=== PATIENT | male | born 1970 | race Two or more races ===

== ENCOUNTER 2018-06-15 22:11 | Inpatient (IN) ==
--- NOTE | 2018-06-15 22:41 | XR ---
EXAM DATE: 06/15/2018 10:37 PM EST AGE/SEX: 48 years / Male INDICATIONS: Chest pain CLINICAL DATA: This is the patient's initial encounter. Patient reports that signs and symptoms have been present for 1 day and indicates a pain score of 3/10. MEDICAL/SURGICAL HISTORY: Hypertension. None. COMPARISON: No prior exams available for comparison. FINDINGS: A single AP view of the chest demonstrates the lungs to be symmetrically aerated without evidence of mass, infiltrate or effusion. The cardiomediastinal contours are unremarkable. Osseous structures a re intact. CONCLUSION: Negative chest Electronically signed by: Raymon Chapman MD Board Certified Radiologist 06/15/2018 10:40 PM EST
[2018-06-15 23:04] LABS: Baso # (Auto) 0.1 th/mm3 (0.0-0.2); Baso % (Auto) 0.8 % (0.0-2.0); Eos # (Auto) 0.4 th/mm3 (0.0-0.4); Eos % (Auto) 4.3 % (0.0-4.0); Hematocrit 45.1 % (39.0-51.0); Hemoglobin 15.4 gm/dL (13.0-17.0); Lymph # (Auto) 3.1 th/mm3 (1.0-4.8); Lymph % (Auto) 35.1 % (9.0-44.0); Mean Corpuscular HGB Conc 34.2 % (32.0-36.0); Mean Corpuscular Volume 90.7 fL (80.0-100.0); Mean Platelet Volume 8.7 fL (7.0-11.0); Mono # (Auto) 0.5 th/mm3 (0.0-0.9); Mono % (Auto) 5.8 % (0.0-8.0); Neut # (Auto) 4.7 th/mm3 (1.8-7.7); Platelet Count 298 th/mm3 (150-450); Red Blood Count 4.97 mil/mm3 (4.50-5.90); Red Cell Distribution Width 14.5 % (11.6-17.2); White Blood Count 8.8 th/mm3 (4.0-11.0)
[2018-06-15 23:27] LABS: Alanine Aminotransferase 21 U/L (12-78); Albumin 3.8 g/dL (3.4-5.0); Alkaline Phosphatase 99 U/L (45-117); Anion Gap 6 meq/L (5-15); Aspartate Aminotransferase 27 U/L (15-37); Blood Urea Nitrogen 21 mg/dL (7-18); Calcium 8.1 mg/dL (8.5-10.1); Carbon Dioxide 29.3 meq/L (21.0-32.0); Chloride 103 meq/L (98-107); Creatine Kinase 243 U/L (39-308); Glomerular Filtration Rate 51 mL/min (>89); Glucose,Random 301 mg/dL (74-106); Magnesium 1.9 mg/dL (1.5-2.5); Sodium 138 meq/L (136-145); Total Protein 7.7 g/dL (6.4-8.2)
[2018-06-15 23:41] LABS: Potassium 4.3 meq/L (3.5-5.1)
[2018-06-15] MEDS ORDERED: Sodium Chlor 0.9% Inj 500 ML IV.SIG SCH (23:45)
[2018-06-15 23:54] LABS: Creatine Kinase MB 5.3 ng/mL (0.5-3.6)
--- NOTE | 2018-06-16 | ED ---
HPI General Chief Complaint: Chest Pain Stated Complaint: chest Pain/High BP Time Seen by Provider: 06/15/18 22:26 Source: patient Mode of arrival: ambulatory Limitations: no limitations History of Present Illness HPI narrative: 48-year-old male presents to the emergency department by private transportation for complaint of high blood pressure chest pain and headache. According the patient he takes lisinopril as prescribed for his high blood pressure. Patient took his evening dose of lisinopril as prescribed. Patient states around 730 this evening he had an episode of chest tightness that resolved after several minutes and then went to bed and then noticed again as he was preparing to go to sleep that he had recurrent chest pressure nonradiating he also noted that he had some headache not sudden onset thunderclap or worst ever no report of altered mental status visual disturbance shortness of breath sweats nausea vomiting referred neck jaw back shoulder arm or extremity pain. No upper extremity lower extremity numbness tingling or weakness. Patient checked his blood pressure it was elevated. Came to the emergency room for evaluation. Patient was noted to have high blood pressure on triage vital signs. Patient rates his chest discomfort currently as 7/10 intensity. Patient is a non-smoker. Patient also has history of diabetes. Denies previous history of myocardial infarction no report of dyslipidemia. MD complaint: Reports chest pain STEMI Alert: No Onset (ago): hour(s) Time: 07:30 Duration: intermittent Onset: during rest and awoke with symptoms Pain location: Reports substernal and left chest Severity: severe Severity scale (1-10): 7 Quality: Reports tightness Pain radiation: Reports none Relieving factors: nothing Exacerbating factors: nothing Context: Denies recent illness, recent surgery, recent immobilization, recent travel, trauma/injury, new medications and history of DVT/PE Associated symptoms: Denies nausea, vomiting, diaphoresis, dyspnea, sense of impending doom, syncope, palpitations, fever, cough and leg swelling Treatments prior to arrival chest pain: Reports none Related Data Home Medications Medication Instructions Recorded Confirmed atorvastatin 10 mg PO DAILY 06/15/18 06/15/18 escitalopram oxalate [Lexapro] 5 mg PO DAILY 06/15/18 06/15/18 insulin degludec [Tresiba 15 unit SUBCUT DAILY 06/15/18 06/15/18 FlexTouch U-100] insulin regular human 10 unit SUBCUT TID 06/15/18 06/15/18 lisinopril 20 mg PO BID 06/15/18 06/15/18 Allergies Allergy/AdvReac Type Severity Reaction Status Date / Time shellfish derived Allergy Severe HIVES Unverified 12/07/16 20:31 Review of Systems ROS: all other systems reviewed are negative PMFSH Social History Social History Substance History: Active Abuse Second Hand Smoke Exposure: No Smoking Status: Never smoker How Often Do You Have a Drink Containing Alcohol: Monthly or less Recent Travel in [facility] within the Last 8 Weeks: No Recent Out of Country Travel within the Last 8 Weeks: No Substance Abuse Detail Marijuana: Substance Use Type Other:: marijuana Immunization History Tetanus Immunization: >5 Years Exam Narrative Exam Narrative: GENERAL: Well-developed well-nourished male no acute distress no respiratory distress GCS 15 SKIN: Focused skin assessment warm/dry. HEAD: Atraumatic. Normocephalic. EYES: Pupils equal and round. No scleral icterus. No injection or drainage. ENT: No nasal bleeding or discharge. Mucous membranes pink and moist. NECK: Trachea midline. No JVD. CARDIOVASCULAR: Regular rate and rhythm. No murmur appreciated. RESPIRATORY: No accessory muscle use. Clear to auscultation. Breath sounds equal bilaterally. GASTROINTESTINAL: Abdomen soft, non-tender, nondistended. Hepatic and splenic margins not palpable. MUSCULOSKELETAL: No obvious deformities. No clubbing. No cyanosis. No edema. NEUROLOGICAL: Awake and alert. No obvious cranial nerve deficits. Motor grossly within normal limits. Normal speech. PSYCHIATRIC: Appropriate mood and affect; insight and judgment normal. Course Initial Documented Vital Signs Temperature 97.9 F 06/15/18 22:13 Pulse Rate 95 H 06/15/18 22:13 Respiratory Rate 22 06/15/18 22:13 Blood Pressure 258/125 H 06/15/18 22:13 Pulse Oximetry 99 06/15/18 22:13 Last Documented Vital Signs Temperature 97.5 F L 06/16/18 01:28 Pulse Rate 60 06/16/18 01:28 Respiratory Rate 18 06/16/18 02:10 Blood Pressure 155/84 H 06/16/18 01:28 Pulse Oximetry 98 06/16/18 01:28 Critical Care Time Critical Care Time: Yes Total Critical Care Time: 30 Attestation: Aggregate critical care time was 30 minutes. Time to perform other separately billable procedures was not included in the critical care time. My time did not include minutes spent treating any other patients simultaneously or on activities that did not directly contribute to the patient's treatment. The services I provided to this patient were to treat and/or prevent clinically significant deterioration that could result in: Myocardial infarction, stroke, I provided critical care services requiring my management, as noted below: Chart data review, documentation time, medication orders and management, vital sign assessments/reviewing monitor data, ordering and reviewing lab tests, ordering and interpreting/reviewing x-rays and diagnostic studies, care of the patient and discussion of the patient with the admitting physicians. Medical Decision Making MDM Narrative Medical decision making narrative: 48-year-old male with history of hypertension and diabetes with markedly elevated blood pressure with complaint of chest pain and headache placed on air sampling and monitoring with continuous pulse oximetry IV access obtained specimens collected and sent for resulting EKG performed which is normal sinus rhythm rate 86 LVH by voltage criteria nonspecific T wave changes with no acute ST elevation or injury pattern change noted without reciprocal changes patient was given sublingual nitroglycerin for chest pain and for blood pressure control with good response and also given aspirin 162 mg by mouth Patient's pain has decreased from 7/10 in intensity to a 2/10 in intensity and denies any other associated headache or other symptoms. Lab values resulted found to be in normal range except for his troponin I was found to be elevated at 0.1 and his CK was 245 but the MB was 5.3 which is elevated the MB percent is 2% which is not elevated Nitropaste applied to the chest wall patient's pain is resolved call placed to medicine service for admission; patient presented with hypertensive crisis suspect that elevation of troponin I is related to his previously uncontrolled high blood pressure; patient's cardiac risk factor however includes age 48 gender male pre-existing conditions hypertension diabetes and family history of premature onset heart disease, does not have history of tobaccoism or dyslipidemia; patient with spouse at bedside aware of plan and is agreeable. Patient's case discussed with medicine service, Dr. Nash admit to her service Medical Screen Exam Complete: Yes Emergency Medical Condition: Yes Differential Diagnosis Differential Diagnosis: Hypertensive crisis, ACS, SD, uncontrolled diabetes Medical Records No prior visit Lab Data Lab results reviewed: Yes I reviewed the patient's lab results. Result diagrams: 02/21/19 22:45 06/15/18 22:45 Lab Results 06/15/18 06/15/18 06/15/18 Range/Units 22:45 22:45 22:45 WBC 8.8 (4.0-11.0) th/mm3 RBC 4.97 (4.50-5.90) mil/mm3 Hgb 15.4 (13.0-17.0) gm/dL Hct 45.1 (39.0-51.0) % MCV 90.7 (80.0-100.0) fL MCH 31.0 (27.0-34.0) pg MCHC 34.2 (32.0-36.0) % RDW 14.5 (11.6-17.2) % Plt Count 298 (150-450) th/mm3 MPV 8.7 (7.0-11.0) fL Neut % (Auto) 54.0 (16.0-70.0) % Lymph % (Auto) 35.1 (9.0-44.0) % Person % (Auto) 5.8 (0.0-8.0) % Eos % (Auto) 4.3 H (0.0-4.0) % Baso % (Auto) 0.8 (0.0-2.0) % Neut # (Auto) 4.7 (1.8-7.7) th/mm3 Lymph # (Auto) 3.1 (1.0-4.8) th/mm3 Person # (Auto) 0.5 (0.0-0.9) th/mm3 Eos # (Auto) 0.4 (0.0-0.4) th/mm3 Baso # (Auto) 0.1 (0.0-0.2) th/mm3 WBC Differential . Differential Comment Auto diff final Sodium 138 (136-145) meq/L Potassium 4.3 (3.5-5.1) meq/L Chloride 103 (98-107) meq/L Carbon Dioxide 29.3 (21.0-32.0) meq/L Anion Gap 6 (5-15) meq/L BUN 21 H (7-18) mg/dL Creatinine 1.47 H (0.60-1.30) mg/dL Estimated GFR 51 L (>89) mL/min Random Glucose 301 H (74-106) mg/dL Calcium 8.1 L (8.5-10.1) mg/dL Magnesium 1.9 (1.5-2.5) mg/dL Total Bilirubin 0.3 (0.2-1.0) mg/dL AST 27 (15-37) U/L ALT 21 (12-78) U/L Alkaline Phosphatase 99 (45-117) U/L Total Creatine Kinase 243 (39-308) U/L CK-MB (CK-2) 5.3 H (0.5-3.6) ng/mL Troponin I 0.10 H (0.02-0.05) ng/mL B-Natriuretic Peptide 26 (0-100) pg/mL Total Protein 7.7 (6.4-8.2) g/dL Albumin 3.8 (3.4-5.0) g/dL Imaging Data Radiologist's impression: Chest X-Ray 06/15/18 22:26 CONCLUSION: Negative chest ECG Data EKG Prior to Arrival: No Attestation: I personally reviewed and interpreted this ECG as follows: (EKG: Normal sinus rhythm rate 85 left ventricular hypertrophy by voltage criterion and nonspecific ST-T changes no acute ST elevation or injury pattern no reciprocal changes no comparison EKG) Discharge Plan Discharge Disposition Patient Disposition: ED Admit(ED Internal Use Only) Discharge Condition Condition: Stable Discharge Order Discharge Orders: ED Use Only Admit Order (Routine); Ordered 06/16/18 Ordered By: Amisha Torres Discharge Details Diagnosis: Hypertensive crisis, Chest pain, Diabetes Physicians Team ED Provider: Amisha Torres Primary Care Provider: UNKNOWN, Attending Provider: Waleska Nash Other Providers: Landon Tsang ; [facility],Insurance Status ED Status: Left Department Discharge Information Discharge Date/Time: 06/16/18 01:56
[2018-06-16] MEDS ORDERED: Bisacodyl 10 MG Supp RECTAL PRN (00:23)
[2018-06-16] MEDS ORDERED: Morphine Inj 4 MG/ML Vial IV.PUSH PRN (00:24)
[2018-06-16] MEDS: Sod Chloride 0.9% Inj 1,000 ML IV.CONT SCH ×2 (01:03→08:56)
--- NOTE | 2018-06-16 01:07 | P.HPIM ---
History of Present Illness Primary Care Physician: UNKNOWN History of Present Illness: This is a 48-year-old male with a PMH of HTN, Hyperlipidemia and DM who presented to the ER with complaints of chest pain starting earlier today. States he had sudden onset substernal chest pain at work this afternoon, pain resolved spontaneously after few minutes. Later this evening had recurrent episode of chest pain, this time severe, 10/10, substernal , non-radiating, associated w/ SOB and severe headache. On arrival, BP 258/125 , HR 95, O2 sat 99% on RA, Afebrile. S/p NTG w/ improvement in BP to 150-160' s. Currently chest pain free. CBC unremarkable. Creatinine 1.47, no previous labs for comparison. BS 301. CXR negative. Troponin 0.10. Diagnosis (1) Chest pain: (2) HTN (hypertension): (3) SERENITY (acute kidney injury): (4) DM (diabetes mellitus): (5) Elevated troponin: Review of Systems PAST FAMILY HISTORY: Reviewed, positive for DM and CAD. Review of Systems: all other systems reviewed are negative [facility] Social History Social History Substance History: Active Abuse Second Hand Smoke Exposure: No Smoking Status: Never smoker How Often Do You Have a Drink Containing Alcohol: Monthly or less Substance Abuse Detail Marijuana: Substance Use Type Other:: marijuana Immunization History Tetanus Immunization: >5 Years Medications and Allergies Allergies Allergy/AdvReac Type Severity Reaction Status Date / Time shellfish derived Allergy Severe HIVES Unverified 12/07/16 20:31 Home Medications Medication Instructions Recorded Confirmed Type atorvastatin 10 mg PO DAILY 06/15/18 06/15/18 History escitalopram oxalate [Lexapro] 5 mg PO DAILY 06/15/18 06/15/18 History insulin degludec [Tresiba 15 unit SUBCUT DAILY 06/15/18 06/15/18 History FlexTouch U-100] insulin regular human 10 unit SUBCUT TID 06/15/18 06/15/18 History lisinopril 20 mg PO BID 06/15/18 06/15/18 History Active Medications: Active Medications Acetaminophen (Tylenol) 650 mg PO Q4H PRN PRN Reason: Temp > 100.4 Al Hydroxide/Mg Hydroxide (Milk Of Magnmark Liq) 30 ml PO Q12H PRN PRN Reason: Mild Constipation Aspirin (Ecotrin) 81 mg PO DAILY [facility] Atorvastatin Calcium (Lipitor) 10 mg PO DAILY [facility] Bisacodyl (Dulcolax Supp) 10 mg RECTAL DAILY PRN PRN Reason: SEVERE CONSITIPATION Escitalopram Oxalate (Lexapro) 5 mg PO DAILY [facility] Sodium Chloride (Ns Inj) 1,000 mls @ 125 mls/hr IV.CONT .Q8H [facility] Lactulose (Lactulose Liq) 30 ml PO DAILY PRN PRN Reason: SEVERE CONSITIPATION Metoprolol Tartrate (Lopressor) 25 mg PO BID [facility] Morphine Sulfate (Morphine Inj) 2 mg IV.PUSH Q4H PRN PRN Reason: PAIN SCALE 6 TO 10 Ondansetron HCl (Zofran Inj) 4 mg IV.PUSH Q6H PRN PRN Reason: NAUSEA OR VOMITING Senna/Docusate Sodium (Eryn-Colace) 1 tab PO BID [facility] Sennosides (Senokot) 17.2 mg PO Q12H PRN PRN Reason: Moderate Constipation Sodium Chloride (Ns Flush) 2 ml IV.FLUSH UNSCH PRN PRN Reason: FLUSH AFTER USING IV ACCESS Sodium Chloride (Ns Flush) 2 ml IV.FLUSH PRN PRN PRN Reason: FLUSH AFTER USING IV ACCESS Sodium Chloride (Ns Flush) 2 ml IV.FLUSH BID [facility] Physical Exam Vital signs: Vital Signs 06/15/18 22:13 06/15/18 22:36 06/15/18 22:37 Temperature 97.9 F Pulse Rate 95 H 76 76 Respiratory Rate 22 18 Blood Pressure 258/125 H 243/115 H Pulse Oximetry 99 98 06/15/18 22:51 06/15/18 22:58 06/15/18 23:03 Temperature Pulse Rate 76 75 Respiratory Rate 18 17 18 Blood Pressure 181/84 H 158/73 H Pulse Oximetry 96 96 06/15/18 23:12 06/15/18 23:22 06/15/18 23:24 Temperature Pulse Rate 77 79 Respiratory Rate 16 17 Blood Pressure 160/76 H 151/72 H Pulse Oximetry 96 97 06/15/18 23:49 06/16/18 00:54 Temperature Pulse Rate 69 Respiratory Rate 18 Blood Pressure 162/84 H Pulse Oximetry 97 98 Intake & Output 06/15/18 06/15/18 06/16/18 06:59 18:59 06:59 Weight 76.204 kg Narrative: PE: GENERAL: Middle-aged male in no acute distress. at bedside. SKIN: Focused skin assessment warm and dry. HEENT: PERRLA, EOMI. No scleral icterus or conjunctival pallor. No lid lag or facial droop. CARDIOVASCULAR: Regular rate and rhythm. No obvious murmurs to auscultation. No chest tenderness to palpation. RESPIRATORY: No obvious rhonchi or wheezing. Clear to auscultation. Breath sounds equal bilaterally. GASTROINTESTINAL: Abdomen soft, non-tender, nondistended. BS normal. MUSCULOSKELETAL: Extremities without clubbing, cyanosis, or edema. No obvious deformities. NEUROLOGICAL: Awake, alert and oriented x4. No focal neurologic deficits. Moving both upper and lower extremities spontaneously. PSYCHIATRIC: Appropriate mood and affect. Insight and judgment normal. Results Labs CBC & Chem 7: 06/15/18 22:45 06/15/18 22:45 Imaging Impressions Chest X-Ray 06/15/18 22:26 CONCLUSION: Negative chest Caprini VTE Risk Assessment Caprini VTE Risk Assessment: No/Low Risk (score <= 1) Caprini Risk Assessment Model: Point Value = 1 Point Value = 2 Point Value = 3 Point Value = 5 Age 41-60 Minor surgery BMI > 25 kg/m2 Swollen legs Varicose veins or History of unexplained or recurrent spontaneous Oral contraceptives or hormone replacement Sepsis (< 1 month) Serious lung disease, including pneumonia (< 1 month) Abnormal pulmonary function Acute myocardial infarction Congestive heart failure (< 1 month) History of inflammatory bowel disease Medical patient at bed rest Age 61-74 Arthroscopic surgery Major open surgery (> 45 min) Laparoscopic surgery (> 45 min) Malignancy Confined to bed (> 72 hours) Immobilizing plaster cast Central venous access Age >= 75 History of VTE Family history of VTE Factor V Leiden Prothrombin [id number] Lupus anticoagulant Anticardiolipin antibodies Elevated serum homocysteine Heparin-induced thrombocytopenia Other congenital or acquired thrombophilia Stroke (< 1 month) Elective arthroplasty Hip, pelvis, or leg fracture Acute spinal cord injury (< 1 month) Prophylaxis Regimen: Total Risk Factor Score Risk Level Prophylaxis Regimen 0-1 Low Early ambulation 2 Moderate Order ONE of the following: *Sequential Compression Device (SCD) *Heparin 5000 units SQ BID 3-4 Higher Order ONE of the following medications: *Heparin 5000 units SQ TID *Enoxaparin/Lovenox 40 mg SQ daily (WT < 150 kg, CrCl > 30 mL/min) *Enoxaparin/Lovenox 30 mg SQ daily (WT < 150 kg, CrCl > 10-29 mL/min) *Enoxaparin/Lovenox 30 mg SQ BID (WT < 150 kg, CrCl > 30 mL/min) AND/OR *Sequential Compression Device (SCD) 5 or more Highest Order ONE of the following medications: *Heparin 5000 units SQ TID (Preferred with Epidurals) *Enoxaparin/Lovenox 40 mg SQ daily (WT < 150 kg, CrCl > 30 mL/min) *Enoxaparin/Lovenox 30 mg SQ daily (WT < 150 kg, CrCl > 10-29 mL/min) *Enoxaparin/Lovenox 30 mg SQ BID (WT < 150 kg, CrCl > 30 mL/min) AND *Sequential Compression Device (SCD) Assessment and Plan (1) Chest pain: Code(s): R07.9 - Chest pain, unspecified Status: Acute (2) HTN (hypertension): Code(s): I10 - Essential (primary) hypertension Status: Acute (3) SERENITY (acute kidney injury): Code(s): N17.9 - Acute kidney failure, unspecified Status: Acute (4) DM (diabetes mellitus): Code(s): E11.9 - Type 2 diabetes mellitus without complications Status: Acute (5) Elevated troponin: Code(s): R74.8 - Abnormal levels of other serum enzymes Status: Acute Plan A/P: 1. Chest Pain: intermittent episodes of chest pain earlier today, s/p NTG w/ resolution, continue w/ NTG, Morphine prn. 2. Elevated Trop: Trop 0.10, likely related to Hypertensive urgency w/ BP 250' s, will admit for further eval, check serial cardiac enzymes, check Lipid Profile, start ASA, Statin, Metoprolol. Consult Cardiology for further eval/ recommendations. 3. HTN: Uncontrolled, BP 250's on arrival, s/p NTG w/ significant improvement , BP currently 150's, will hold Lisinopril in light of renal insufficiency, start Metoprolol, monitor BP, antihypertensives as needed for BP >180 4. SERENITY: Creatinine 1.47, no previous labs for comparison, presumably new, check U/a and UDS, IVF for hydration, monitor I/O, repeat labs in am. 5. DVT Prophylaxis: SCD/Teds 6. Social work for d/c planning as needed. 7. Case discussed w/ ER physician at length, labs/records/imaging reviewed by me. _ (1) Chest pain Qualifiers: Chest pain type: Ischemic chest pain type:
[2018-06-16] MEDS: Acetaminophen 325 MG Tablet PO PRN (01:37)
[2018-06-16 05:38] LABS: Baso # (Auto) 0.1 th/mm3 (0.0-0.2); Baso % (Auto) 1.5 % (0.0-2.0); Eos # (Auto) 0.4 th/mm3 (0.0-0.4); Eos % (Auto) 6.6 % (0.0-4.0); Hematocrit 40.5 % (39.0-51.0); Hemoglobin 13.6 gm/dL (13.0-17.0); Lymph # (Auto) 2.3 th/mm3 (1.0-4.8); Mean Corpuscular HGB Conc 33.6 % (32.0-36.0); Mean Corpuscular Hemoglobin 30.8 pg (27.0-34.0); Mean Corpuscular Volume 91.8 fL (80.0-100.0); Mean Platelet Volume 8.1 fL (7.0-11.0); Mono # (Auto) 0.5 th/mm3 (0.0-0.9); Mono % (Auto) 7.8 % (0.0-8.0); Neut # (Auto) 3.1 th/mm3 (1.8-7.7); Neut % (Auto) 48.1 % (16.0-70.0); Platelet Count 256 th/mm3 (150-450); Red Blood Count 4.42 mil/mm3 (4.50-5.90); White Blood Count 6.5 th/mm3 (4.0-11.0)
[2018-06-16 06:10] LABS: Alanine Aminotransferase 19 U/L (12-78); Albumin 3.1 g/dL (3.4-5.0); Alkaline Phosphatase 85 U/L (45-117); Anion Gap 6 meq/L (5-15); Aspartate Aminotransferase 18 U/L (15-37); Blood Urea Nitrogen 20 mg/dL (7-18); Calcium 7.6 mg/dL (8.5-10.1); Carbon Dioxide 27.4 meq/L (21.0-32.0); Chloride 109 meq/L (98-107); Chol/HDL Ratio 2.71 Ratio; Cholesterol 136 mg/dL (120-200); Glomerular Filtration Rate 63 mL/min (>89); Glucose,Random 198 mg/dL (74-106); HDL Cholesterol 50.1 mg/dL (40.0-60.0); LDL Cholesterol,Calculated 66 mg/dL (0-99); Potassium 4.1 meq/L (3.5-5.1); Sodium 142 meq/L (136-145); Total Protein 6.1 g/dL (6.4-8.2); Triglycerides 99 mg/dL (42-150); Troponin I 0.31 ng/mL (0.02-0.05)
[2018-06-16] MEDS ORDERED: Heparin 10,000 UNITS/10 ML Vial (for IV use) IV.PUSH STA (06:20)
[2018-06-16] MEDS ORDERED: Heparin Drip 25,000 UNIT/250 ML BAG IV.CONT PRN (06:20)
[2018-06-16] MEDS ORDERED: Metoprolol Tartrate 25 MG Tablet PO SCH ×2 (06:26→09:00)
[2018-06-16 06:40] LABS: Bilirubin,Urine Negative (Negative); Clarity,Urine Clear (Clear); Color,Urine Straw (Yellw/Straw); Glucose,Urine (UA) 500 or Greater mg/dL (Negative); Leukocyte Esterase,Urine Negative (Negative); Mucus,Urine Few /lpf (Occasional); Nitrite,Urine Negative (Negative); Specific Gravity,Urine 1.008 (1.002-1.035)
[2018-06-16 07:04] LABS: Amphetamine Screen,Urine Neg (Neg); Barbiturate Screen,Urine Neg (Neg); Cannabinoid Screen,Urine Pos (Neg); Cocaine Screen,Urine Neg (Neg)
[2018-06-16 07:06] LABS: Opiate Screen,Urine Neg (Neg)
[2018-06-16 07:35] LABS: Activated Partial Thrombo Time 27.1 sec (23.4-31.7); Prothrombin Time 10.6 sec (9.8-11.6)
--- NOTE | 2018-06-16 08:27 | P.CONCA ---
History of Present Illness Primary Care Provider: UNKNOWN History of Present Illness: 48 y/o male with a history of uncontrolled HTN, DM and hyperlipemia. Pt presented to the ED with severe chest pain associated with a severe headache, blurry vision, and non-exertional SOB. He was found to have BP 258/125, currently 170/89 after medication in the ED. He described the chest pain as a tight pressure, non-radiating. Admits he experienced similar symptoms within the same day but the episodes were not as severe. Prior to yesterday, he denies any CP, SOB with exertion, palpitations, syncope or migraines. He states his PCP manages his chronic conditions, he does not check his BP at home but will usually run in the 190's SBP when checked at doctor's office. EKG performed in the ED, showed NSR, LVH criteria. Troponin levels were 0.10 and 0.30. Pt states he is still experiencing chest pain, rating the pain a 4/10. Quit smoking 1 year ago. Review of Systems All other systems reviewed negative except as stated in HPI PMFSH - History History Provided By: Patient - Tobacco History Second Hand Smoke Exposure: No Smoking Status: Former smoker - Alcohol History How Often Do You Have a Drink Containing Alcohol: Monthly or less - Substance Use History Substance History: Active Abuse - Substance Use Type Marijuana Type: marijuana Status: Active Route Used: Inhalation - Travel History Recent Travel in the [place] Within the Last 8 Weeks: No Recent Travel Out of the Country Within the Last 8 Weeks: No - Immunization History Tetanus Immunization: >5 Years Medications and Allergies Allergies Allergy/AdvReac Type Severity Reaction Status Date / Time shellfish derived Allergy Severe HIVES Verified 06/16/18 07:58 Home Medications Medication Instructions Recorded Confirmed Type atorvastatin 10 mg PO DAILY 06/15/18 06/15/18 History escitalopram oxalate [Lexapro] 5 mg PO DAILY 06/15/18 06/15/18 History insulin degludec [Tresiba 15 unit SUBCUT DAILY 06/15/18 06/15/18 History FlexTouch U-100] insulin regular human 10 unit SUBCUT TID 06/15/18 06/15/18 History lisinopril 20 mg PO BID 06/15/18 06/15/18 History Active Medications: Active Medications Acetaminophen (Tylenol) 650 mg PO Q4H PRN PRN Reason: Temp > 100.4 Last Admin: 06/16/18 01:37 Dose: 650 mg Al Hydroxide/Mg Hydroxide (Milk Of Magnesia Liq) 30 ml PO Q12H PRN PRN Reason: Mild Constipation Aspirin (Ecotrin) 81 mg PO DAILY [facility] Atorvastatin Calcium (Lipitor) 10 mg PO DAILY [facility] Bisacodyl (Dulcolax Supp) 10 mg RECTAL DAILY PRN PRN Reason: SEVERE CONSITIPATION Escitalopram Oxalate (Lexapro) 5 mg PO DAILY [facility] Heparin Sodium (Porcine) (Heparin Inj) 2,500 units IV.PUSH UNSCH PRN PRN Reason: aPTT 25-39 Heparin Sodium (Porcine) (Heparin Inj) 5,000 units IV.PUSH UNSCH PRN PRN Reason: aPTT < 25 Sodium Chloride (Ns Inj) 1,000 mls @ 125 mls/hr IV.CONT .Q8H [facility] Last Admin: 06/16/18 01:03 Dose: 125 mls/hr Heparin Sodium/Dextrose (Heparin/D5w 25,000 U/250 Ml) 25,000 unit in 250 mls @ 0 mls/hr IV.CONT TITRATE PRN; Protocol PRN Reason: Per Protocol Last Admin: 06/16/18 07:50 Dose: 900 units/hr, 9 mls/hr Lactulose (Lactulose Liq) 30 ml PO DAILY PRN PRN Reason: SEVERE CONSITIPATION Metoprolol Tartrate (Lopressor) 25 mg PO BID [facility] Morphine Sulfate (Morphine Inj) 2 mg IV.PUSH Q4H PRN PRN Reason: PAIN SCALE 6 TO 10 Ondansetron HCl (Zofran Inj) 4 mg IV.PUSH Q6H PRN PRN Reason: NAUSEA OR VOMITING Senna/Docusate Sodium (Eryn-Colace) 1 tab PO BID [facility] Sennosides (Senokot) 17.2 mg PO Q12H PRN PRN Reason: Moderate Constipation Sodium Chloride (Ns Flush) 2 ml IV.FLUSH PRN PRN PRN Reason: FLUSH AFTER USING IV ACCESS Sodium Chloride (Ns Flush) 2 ml IV.FLUSH BID [facility] Exam Vital signs: Vital Signs 06/15/18 22:13 06/15/18 22:36 06/15/18 22:37 Temperature 97.9 F Pulse Rate 95 H 76 76 Respiratory Rate 22 18 Blood Pressure 258/125 H 243/115 H Pulse Oximetry 99 98 06/15/18 22:51 06/15/18 22:58 06/15/18 23:03 Temperature Pulse Rate 76 75 Respiratory Rate 18 17 18 Blood Pressure 181/84 H 158/73 H Pulse Oximetry 96 96 06/15/18 23:12 06/15/18 23:22 06/15/18 23:24 Temperature Pulse Rate 77 79 Respiratory Rate 16 17 Blood Pressure 160/76 H 151/72 H Pulse Oximetry 96 97 06/15/18 23:49 06/16/18 00:54 06/16/18 01:25 Temperature Pulse Rate 69 Respiratory Rate 18 18 Blood Pressure 162/84 H Pulse Oximetry 97 98 06/16/18 01:28 06/16/18 01:41 06/16/18 02:10 Temperature 97.5 F L Pulse Rate 60 60 Respiratory Rate 16 18 Blood Pressure 155/84 H Pulse Oximetry 98 06/16/18 04:00 Temperature 97.4 F L Pulse Rate 63 Respiratory Rate 16 Blood Pressure 170/89 H Pulse Oximetry 94 L Intake & Output 06/15/18 06/16/18 06/16/18 18:59 06:59 18:59 Intake Total 500 / 500 Balance 500 / 500 Weight 168 lb 0.017 oz Intake: IV 500 / 500 NS Inj 500 ML @ 1000 mls/hr IV. 500 / 500 SIG BOLUS GAYE Rx#:[id number] Other: # Voids 1 Date of Last Bowel Movement 06/15/18 Weight On Admission 168 lb 0.017 oz Narrative: GENERAL: Well-developed well-nourished. In no acute distress. NECK: No carotid bruits. No JVD. CARDIOVASCULAR: Regular rate and rhythm. No murmur appreciated. RESPIRATORY: No accessory muscle use. Clear to auscultation. Breath sounds equal bilaterally. MUSCULOSKELETAL: No clubbing or cyanosis. No edema. NEUROLOGICAL: Awake and alert. Normal speech. Results 06/16/18 05:18 06/16/18 05:18 Cardiac Enzymes 06/15/18 06/15/18 06/16/18 Range/Units 22:45 22:45 05:18 AST 27 18 (15-37) U/L CK-MB (CK-2) 5.3 H (0.5-3.6) ng/mL Troponin I 0.10 H 0.31 H (0.02-0.05) ng/mL B-Natriuretic Peptide 26 (0-100) pg/mL Coagulation 06/15/18 06/16/18 Range/Units 22:45 07:12 PT 10.6 (9.8-11.6) sec APTT 27.1 (23.4-31.7) sec B-Natriuretic Peptide 26 (0-100) pg/mL Lipids 06/16/18 Range/Units 05:18 Triglycerides 99 (42-150) mg/dL Cholesterol 136 (120-200) mg/dL HDL Cholesterol 50.1 (40.0-60.0) mg/dL Cholesterol/HDL Ratio 2.71 Ratio CBC 06/15/18 06/16/18 Range/Units 22:45 05:18 WBC 8.8 6.5 (4.0-11.0) th/mm3 RBC 4.97 4.42 L (4.50-5.90) mil/mm3 Hgb 15.4 13.6 (13.0-17.0) gm/dL Hct 45.1 40.5 (39.0-51.0) % Plt Count 298 256 (150-450) th/mm3 Neut # (Auto) 4.7 3.1 (1.8-7.7) th/mm3 Lymph # (Auto) 3.1 2.3 (1.0-4.8) th/mm3 [place] # (Auto) 0.5 0.5 (0.0-0.9) th/mm3 Eos # (Auto) 0.4 0.4 (0.0-0.4) th/mm3 Baso # (Auto) 0.1 0.1 (0.0-0.2) th/mm3 Comprehensive Metabolic Panel 06/15/18 06/16/18 Range/Units 22:45 05:18 Sodium 138 142 (136-145) meq/L Potassium 4.3 4.1 (3.5-5.1) meq/L Chloride 103 109 H (98-107) meq/L Carbon Dioxide 29.3 27.4 (21.0-32.0) meq/L BUN 21 H 20 H (7-18) mg/dL Creatinine 1.47 H 1.23 (0.60-1.30) mg/dL Calcium 8.1 L 7.6 L (8.5-10.1) mg/dL AST 27 18 (15-37) U/L ALT 21 19 (12-78) U/L Alkaline Phosphatase 99 85 (45-117) U/L Total Protein 7.7 6.1 L D (6.4-8.2) g/dL Albumin 3.8 3.1 L D (3.4-5.0) g/dL Intake and Output 06/15/18 06/16/18 06/16/18 22:59 06:59 14:59 Intake Total 500 / 500 Balance 500 / 500 Intake: IV 500 / 500 NS Inj 500 ML @ 1000 mls/hr IV. 500 / 500 SIG BOLUS GAYE Rx#:[id number] Other: # Voids 1 Date of Last Bowel Movement 06/15/18 Weight 168 lb 168 lb 0.017 oz Weight On Admission 168 lb 0.017 oz - Imaging and Cardiology Imaging: Impressions Chest X-Ray 06/15/18 22:26 CONCLUSION: Negative chest Assessment and Plan - Plan 48 y/o male with a history of uncontrolled HTN, DM and hyperlipemia who presented with hypertensive emergency. Elevated troponin: Unclear if demand mediated due to severe hypertension vs NSTEMI. Patient still with chest pain after BP improved to baseline. Discussed risk/benefits/alternatives with the patient, agreed to proceed with C today. Continue statin. Started on aspirin and metoprolol. Continue on heparin GTT for now. Discussed Condition With: Patient, RN, Dr. Tsang - Attending Attestation Left heart catheterization shows small vessel coronary disease and severe first obtuse marginal branch stenosis status post percutaneous coronary intervention drug-eluting stent to the first obtuse marginal branch. Guideline directed medical therapy Hopeful for discharge later today
[2018-06-16] MEDS: Senna/Docusate Sodium 8.6/50 MG Tablet PO SCH ×2 (08:55→20:49)
[2018-06-16] MEDS: Escitalopram 10 MG Tablet PO SCH (08:55)
[2018-06-16] MEDS: Metoprolol Tartrate 25 MG Tablet PO SCH ×2 (08:56→20:49)
[2018-06-16 09:20] LABS: Hemoglobin A1c 8.9 % (4.3-6.0)
[2018-06-16] MEDS ORDERED: Heparin/NS PF Inj 1,000 ML ONE (10:13)
[2018-06-16] MEDS ORDERED: fentaNYL Citrate Inj 100 MCG/2 ML Ampul ONE (10:14)
[2018-06-16] MEDS ORDERED: Heparin 10,000 UNITS/10 ML Vial (for IV use) ONE (10:14)
--- NOTE | 2018-06-16 10:27 | P.PNIM ---
Subjective Interval history: 48 y/o male with PMH of HTN, HLD, and DM presenting with chest pain starting yesterday. The chest pain was described as sudden, substernal, nonradiating, and rated as 10/10. The patient states there was associated SOB, headache, and blurred vision. BP was elevated on arrival at 258/125, improved to 150-160s after NTG. Patient states is feeling much better today, still experiencing chest pain but rates it as 2/10. He is also still having a bilateral temporal headache, with blurry vision that comes and goes. He denies any nausea, shortness of breath, or diaphoresis. He has no other medical complaints at this time. Physical Exam Vital signs: Vital Signs 06/15/18 22:13 06/15/18 22:36 06/15/18 22:37 Temperature 97.9 F Pulse Rate 95 H 76 76 Respiratory Rate 22 18 Blood Pressure 258/125 H 243/115 H Pulse Oximetry 99 98 06/15/18 22:51 06/15/18 22:58 06/15/18 23:03 Temperature Pulse Rate 76 75 Respiratory Rate 18 17 18 Blood Pressure 181/84 H 158/73 H Pulse Oximetry 96 96 06/15/18 23:12 06/15/18 23:22 06/15/18 23:24 Temperature Pulse Rate 77 79 Respiratory Rate 16 17 Blood Pressure 160/76 H 151/72 H Pulse Oximetry 96 97 06/15/18 23:49 06/16/18 00:54 06/16/18 01:25 Temperature Pulse Rate 69 Respiratory Rate 18 18 Blood Pressure 162/84 H Pulse Oximetry 97 98 06/16/18 01:28 06/16/18 01:41 06/16/18 02:10 Temperature 97.5 F L Pulse Rate 60 60 Respiratory Rate 16 18 Blood Pressure 155/84 H Pulse Oximetry 98 06/16/18 04:00 06/16/18 08:00 Temperature 97.4 F L 97.5 F L Pulse Rate 63 56 L Respiratory Rate 16 18 Blood Pressure 170/89 H 176/85 H Pulse Oximetry 94 L 99 Intake & Output 06/15/18 06/16/18 06/16/18 18:59 06:59 18:59 Intake Total 500 / 500 300 / 300 Balance 500 / 500 300 / 300 Weight 76.204 kg Intake: IV 500 / 500 300 / 300 NS Inj 1,000 ML @ 125 mls/hr IV 300 / 300 .CONT .Q8H GAYE Rx#:[id number] NS Inj 500 ML @ 1000 mls/hr IV. 500 / 500 SIG BOLUS GAYE Rx#:[id number] Other: # Voids 1 Date of Last Bowel Movement 06/15/18 Weight On Admission 76.204 kg Narrative: GENERAL: Well-developed pleasant middle-aged male in no acute distress. SKIN: Warm and dry. No visible rashes HEENT: Normocephalic and nontraumatic. No lid lag or facial droop. CARDIOVASCULAR: Regular rate and rhythm. No obvious murmurs to auscultation. No chest tenderness to palpation. RESPIRATORY: No obvious rhonchi or wheezing. Clear to auscultation. Breath sounds equal bilaterally. GASTROINTESTINAL: Abdomen soft, non-tender, nondistended. BS normal. MUSCULOSKELETAL: Extremities without clubbing, cyanosis, or edema. No obvious deformities. NEUROLOGICAL: Awake, alert and oriented x4. No focal neurologic deficits. PSYCHIATRIC: Appropriate mood and affect. Insight and judgment normal. Results - Labs CBC & Chem 7: 06/16/18 05:18 06/16/18 05:18 Laboratory Results - last 24 hr 06/15/18 06/15/18 06/15/18 22:45 22:45 22:45 WBC 8.8 RBC 4.97 Hgb 15.4 Hct 45.1 MCV 90.7 MCH 31.0 MCHC 34.2 RDW 14.5 Plt Count 298 MPV 8.7 Neut % (Auto) 54.0 Lymph % (Auto) 35.1 [place] % (Auto) 5.8 Eos % (Auto) 4.3 H Baso % (Auto) 0.8 Neut # (Auto) 4.7 Lymph # (Auto) 3.1 [place] # (Auto) 0.5 Eos # (Auto) 0.4 Baso # (Auto) 0.1 WBC Differential . Differential Comment Auto diff final PT INR APTT Sodium 138 Potassium 4.3 Chloride 103 Carbon Dioxide 29.3 Anion Gap 6 BUN 21 H Creatinine 1.47 H Estimated GFR 51 L Random Glucose 301 H Calcium 8.1 L Magnesium 1.9 Total Bilirubin 0.3 AST 27 ALT 21 Alkaline Phosphatase 99 Total Creatine Kinase 243 CK-MB (CK-2) 5.3 H Troponin I 0.10 H B-Natriuretic Peptide 26 Total Protein 7.7 Albumin 3.8 Triglycerides Cholesterol LDL Cholesterol, Calc HDL Cholesterol Cholesterol/HDL Ratio Urine Color Urine Clarity Urine pH Ur Specific [place] Urine Protein Urine Glucose (UA) Urine Ketones Urine Occult Blood Urine Nitrate Urine Bilirubin Urine Urobilinogen Ur Leukocyte Esterase Urine Mucus Micro UA Comment Ur Microscopic Review Urine Culture Comments Urine Opiates Screen Ur Barbiturates Screen Ur Amphetamines Screen U Benzodiazepines Scrn Urine Cocaine Screen U Cannabinoids Screen 06/16/18 06/16/18 06/16/18 05:18 05:18 06:19 WBC 6.5 RBC 4.42 L Hgb 13.6 Hct 40.5 MCV 91.8 MCH 30.8 MCHC 33.6 RDW 14.0 Plt Count 256 MPV 8.1 Neut % (Auto) 48.1 Lymph % (Auto) 36.0 [place] % (Auto) 7.8 Eos % (Auto) 6.6 H Baso % (Auto) 1.5 Neut # (Auto) 3.1 Lymph # (Auto) 2.3 [place] # (Auto) 0.5 Eos # (Auto) 0.4 Baso # (Auto) 0.1 WBC Differential . Differential Comment Auto diff final PT INR APTT Sodium 142 Potassium 4.1 Chloride 109 H Carbon Dioxide 27.4 Anion Gap 6 BUN 20 H Creatinine 1.23 Estimated GFR 63 L Random Glucose 198 H D Calcium 7.6 L Magnesium Total Bilirubin 0.2 AST 18 ALT 19 Alkaline Phosphatase 85 Total Creatine Kinase CK-MB (CK-2) Troponin I 0.31 H B-Natriuretic Peptide Total Protein 6.1 L D Albumin 3.1 L D Triglycerides 99 Cholesterol 136 LDL Cholesterol, Calc 66 HDL Cholesterol 50.1 Cholesterol/HDL Ratio 2.71 Urine Color Urine Clarity Urine pH Ur Specific [place] Urine Protein Urine Glucose (UA) Urine Ketones Urine Occult Blood Urine Nitrate Urine Bilirubin Urine Urobilinogen Ur Leukocyte Esterase Urine Mucus Micro UA Comment Ur Microscopic Review Urine Culture Comments Urine Opiates Screen Neg Ur Barbiturates Screen Neg Ur Amphetamines Screen Neg U Benzodiazepines Scrn Neg Urine Cocaine Screen Neg U Cannabinoids Screen Pos H 06/16/18 06/16/18 06:19 07:12 WBC RBC Hgb Hct MCV MCH MCHC RDW Plt Count MPV Neut % (Auto) Lymph % (Auto) [place] % (Auto) Eos % (Auto) Baso % (Auto) Neut # (Auto) Lymph # (Auto) [place] # (Auto) Eos # (Auto) Baso # (Auto) WBC Differential Differential Comment PT 10.6 INR 1.0 APTT 27.1 Sodium Potassium Chloride Carbon Dioxide Anion Gap BUN Creatinine Estimated GFR Random Glucose Calcium Magnesium Total Bilirubin AST ALT Alkaline Phosphatase Total Creatine Kinase CK-MB (CK-2) Troponin I B-Natriuretic Peptide Total Protein Albumin Triglycerides Cholesterol LDL Cholesterol, Calc HDL Cholesterol Cholesterol/HDL Ratio Urine Color Straw Urine Clarity Clear Urine pH 6.0 Ur Specific [place] 1.008 Urine Protein 30 H Urine Glucose (UA) 500 or greater H Urine Ketones Negative Urine Occult Blood Negative Urine Nitrate Negative Urine Bilirubin Negative Urine Urobilinogen Less than 2 Ur Leukocyte Esterase Negative Urine Mucus Few H Micro UA Comment Culture not ind Ur Microscopic Review Not Reportable Urine Culture Comments Culture not ind Urine Opiates Screen Ur Barbiturates Screen Ur Amphetamines Screen U Benzodiazepines Scrn Urine Cocaine Screen U Cannabinoids Screen - Imaging Impressions Chest X-Ray 06/15/18 22:26 CONCLUSION: Negative chest Assessment and Plan - Plan 48 y/o male with PMH of HTN, HLD, and DM presenting with chest pain starting yesterday Acute Hypertensive Urgency: BP 258/125 on arrival. Patient complains of chest pain, headache, blurry vision -S/P NTG with improvement of BP and symptoms -BP trending down 258/125 -->176/85 -Continue with metoprolol -Morphine prn for pain -Patient is feeling better, still complains of headache and intermittent blurry vision Acute NSTEMI: Troponin 0.1 --> 0.3 on 06/16. Patient complains of severe substernal chest pain. No acute ST changes on EKG -Consulted cardiology, appreciate recommendations -Going for heart catheterization this morning -Given aspirin, nitro, statin, morphine, statin -Given IV heparin -Morphine prn for pain -Patients chest pain is improved today SERENITY, Acute: Creatinine 1.47 on arrival, no baseline for comparison, presumably new -Creatinine trending down 1.47 --> 1.23 -UA shows protein -IVF for hydration -Avoid nephrotoxins -Initially help lisinopril because of SERENITY, ok to restart DVT Prophylaxis: SCD/Teds
[2018-06-16] MEDS ORDERED: Misc Info for Pharmacy OTHER STA (10:55)
--- NOTE | 2018-06-16 10:58 | P.PCN ---
Date of procedure: 06/16/18 Pre-op diagnosis: NSTEMI Procedure: extrusion line operator: Fredi Tsang MD Procedures performed: 1. Fluoroscopy with interpretation 2. Coronary angiography 3. Percutaneous core intervention with drug-eluting stent to the first obtuse marginal branch Methods: Risks, benefits, and alternatives were discussed with the patient. Patient understood and consented to the procedure. Patient was brought into the cardiac catheterization lab and placed on the catheterization table. The patient's right wrist was prepped and draped in a sterile fashion. The right wrist was anesthetized with 1% lidocaine. Right wrist was cannulated and a 6 [place] 11 cm sheath was placed without difficulty. 200 mcg of intra-arterial nitroglycerin was administered and 5000 units of intravenous heparin. Coronary angiography: The left main coronary artery was selectively engaged with a 5 [place] JL 3.5 Vicente catheter. The right coronary circulation was selectively engaged with a 5 [place] JR 5 [place] catheter. 1. Left main coronary artery is widely patent 2. Left anterior descending coronary artery has minor luminal irregularities through the entire proximal mid course. The apical left anterior descending coronary has a 75% discrete stenosis but the distal vessel small caliber size. There are several smaller diagonal branches all which have moderate diffuse disease 3. Left circumflex coronary artery has mild luminal irregularities. There is a first obtuse marginal branch which is moderate caliber size and has a 90% stenosis. 4. Right coronary is a dominant vessel giving rise to the posterior descending branch. The right coronary artery has mild luminal irregularities. There is a posterior lateral and posterior descending branch which has moderate disease. Conclusions: 1. Severe single-vessel coronary disease involving the first obtuse marginal branch and rather diffuse small vessel disease 2. Successful percutaneous core intervention with drug-eluting stent to the first obtuse marginal branch. Plan: Guideline directed medical therapy. Sheath removed and Hemoband applied. Monitor for postprocedural complications.
--- NOTE | 2018-06-16 11:02 | CATHPROC ---
[employer] HIS Report Study Information Study Number Admission Scheduled Start Study Start [id number] Jun 16 2018 6:23AM 06/16/2018 Jun 16 2018 10:11AM [place] Service Cath Endovascular Study Admit Source Facility Department Emergency department [facility] Physician and Clinical Staff Initial Landon Sanches Nub Card Tender Martin Mckeon RN Nub Card Tender Myla Davenport RN Other Sunshine Hammonds,RT(R) Recorder Mikey Dye,RT(R) Scrub Gina Lopez,HANH TECH2 Procedures Performed Procedure Location (Site) Vessel Name Coronary Angiograms LCA Left Coronary Coronary Angiograms RCA Right Coronary Drug Eluting Inflatio OM1 Mid CIRC L Heart Cath Wire insertion Radial (right) Radial Art. Equipment Time Brick Paving Checker Description Size Mfg Part Number Used/Scraped TRANSDUCER, TRUWAVE [id number] 10:35 [employer] Global * Used W/STOCKCOCK *[id number] *[id number] *[id number] *[id number] 10:35 [employer] BLANKET,WARM AIR CCL * Used *[id number] 10:35 [employer] PACK, CCL CUSTOM * Used *[id number] 10:35 [employer] SUPPORT, ARTERIAL ADULT [id number] *[id number] Used [id number] 10:48 [employer] STENT, 2.5 15MM ANA 2.5 15MM Used *[id number] 10:49 [employer] 30 YOHANA INDEFLATOR Used *[id number] BAND, RADIAL COMPRESSION TR [id number] 10:51 [employer] 24CM Used SHORT 24 *[id number] SHEATH, FR6 RADIAL PRELUDE 10:35 [employer] FR 6 [id number] Used EASE 11CM [id number] 10:35 [employer] WIRE, EXCHANGE 260CM 3MMJ 260CM Used *[id number] 10:35 [employer] MANIFOLD, 4 PORT * Used *[id number] 10:35 [employer] OMNIPAQUE, 350 MG, 150ML 150ML [id number] Used WIRE, RUNTHROUGH NS FLOPPY [id number] 10:44 [employer] 180CM Used .014 180CM *[id number] Equipment Model, Serial, Lot Number and Expiration Data Description Model Number Serial Number Lot Number Expiration Date STENT, 2.5 15MM ANA [id number] 01-11-2020 History: Current Medications Medication Dosage/Unit Route Frequency Last Date/Time Taken Insulin Statins (any) History: Allergies Allergy Reaction shellfish derived HIVES History: Risk Factors Family History of Hypertension Dyslipidemia Previous OH Previous Heart Failure Premature CAD Yes Yes Yes No No Prior Valve Prior PCI Prior CABG Surgery No No No Cerebrovascular Peripheral Artery Chronic Lung On Dialysis Diabetes Diabetes Therapy Disease Disease Disease No No No No Yes Insulin History: Symptoms/Diagnosis Selection Items Chest pain History: Stress Tests Stress or Imaging Studies Performed No History: Other Disease Selection Items HTN History: Other Current Smoker No Labs Hgb (g/dl) Hct (%) RBC (MIL/MM3) WBC (l/cumm) Platelets (thousands) 11.60-17.00 35.00-51.00 4.00-5.90 4.00-11.00 150.00-450.00 13.6 40.5 4.4 6.5 256 Glucose (mg/dl) BUN (mg/dl) Creatinine (mg/dl) BUN:Creatinine (1:x) 74.00-106.00 7.00-18.00 0.50-1.30 10.00-20.00 198 20 1.2 16.7 Na (meq/l) K (meq/l) Cl (meq/l) CO2 (mmol/L) Ca (mg/dl) 136.00-145.00 3.50-5.10 98.00-107.00 21.00-32.00 8.50-10.10 142 4.1 109 27.4 7.6 PT (sec) PTT (sec) INR (PTT:PT) 9.80-11.60 24.30-30.10 0.90-1.10 10.6 27.1 1 Troponin I (ng/ml) CPK (u/l) CPK-MB (ng/ML) 0.02-0.05 26.00-308.00 0.50-3.60 0.31 243 5.3 Cholesterol (mg/dl) HDL (mg/dl) LDL (mg/dl) HDL:LDL (1:x) 120.00-200.00 40.00-60.00 0.00-99.00 1.00-6.00 136 50 66 1.3 Medication Medication Total Dose (Bolus/Oral) Medication Total Dosage/Unit 1% XYLOCAINE 5 mL ANGIOMAX BOLUS 11 mL FENTANYL 50 mcg HEPARIN 5000 units NTG (IC) 200 mcg VERSED 2 mg Medications (Bolus/Oral) Medication Time Given Dosage/Unit Administered By Reason VERSED 06/16/2018 10:32:09 AM 2 mg Myla Davenport 2 mg VERSED given in lab by Myla Davenport RN in Right Arm via Peripheral IV. FENTANYL 06/16/2018 10:33:27 AM 50 mcg Myla Davenport 50 mcg FENTANYL given in lab by Myla Davenport RN in Right Arm via Peripheral IV. 1% XYLOCAINE 06/16/2018 10:36:38 AM 5 mL Landon Tsang 5 mL 1% XYLOCAINE given in lab by Landon Tsang in Right Radial via Subcutaneous. NTG (IC) 06/16/2018 10:37:39 AM 200 mcg Landon Tsang 200 mcg NTG (IC) given in lab by Landon Tsang in Right Radial via Intra-arterial. HEPARIN 06/16/2018 10:38:05 AM 5000 units Myla Davenport 5000 units HEPARIN given in lab by Myla Davenport RN in Right Arm via Peripheral IV. ANGIOMAX BOLUS 06/16/2018 10:47:00 AM 11 mL Myla Davenport 11 mL ANGIOMAX BOLUS given in lab by Myla Davenport RN in Right Arm via Peripheral IV. Medication (Drip) Medication Time Given Dosage/Unit Concentration/Unit Diluent (ml) Solution ANGIOMAX DRIP 06/16/2018 10:50:07 AM 1.75 mg/kg/hr 250 mg 50 NaCl .9 1.75 mg/kg/hr ANGIOMAX DRIP given in lab by Myla Davenport RN in Right Arm via Peripheral IV. Pump/ Drip Flow = 26.67 ml/hr using NaCl .9 with a concentration of 250 mg in 50 ml. IV Solutions 06/16/2018 10:11:49 AM 0 mL (IV) 1000 NaCl .9 Patient arrived on IV Solutions in Right Arm via Peripheral IV. Pump/Drip Flow = 20 ml/hr using NaCl .9. Initial Case Assessment Cardiovascular HR Rhythm NIBP Chest Pain 90 Sinus 200/104 2 Edema Present Skin color Skin None Normal Warm Dry Circulatory - Right Pulses Dorsalis Pedis Femoral Radial 2 2 2 Scale (0,1,2,3,4,d) Circulatory - Left Pulses Dorsalis Pedis Femoral Radial 2 2 Scale (0,1,2,3,4,d) Neurological State Oriented to time-place- Alert Moves all extremities person Respiration - General Respiration Rate SpO2 (%) O2 (lpm) (B/min) 11 99 0 Final Case Assessment Cardiovascular HR Rhythm NIBP Chest Pain 67 Sinus 152/91 0 Edema Present Skin color Skin None Normal Warm Dry Circulatory - Right Pulses Dorsalis Pedis Femoral Radial 2 2 2 Scale (0,1,2,3,4,d) Circulatory - Left Pulses Dorsalis Pedis Femoral Radial 2 2 Scale (0,1,2,3,4,d) Neurological State Oriented to time-place- Alert Moves all extremities person Respiration - General Respiration Rate SpO2 (%) O2 (lpm) (B/min) 11 97 0 Chronological Log Time Study Chronological Log 10:08:28 Patient arrived via Bed. 10:11:32 Patient Name, D.O.B, / Armband Verified By R.N. 10:11:33 Consent signed by the physician and the patient and verified by the [facility] staff. 10:11:34 Pre-op and post- op instructions given; patient acknowledges understanding of instructions. 10:11:34 Verbal Stimulation=2 Physical Stimulation=2 Airway=2 Respiration=2 TOTAL=8. (0=absent, 1=li mited, 2=present) 10:11:36 Presedation assessment performed by [facility] RN. 10:11:38 Allens test performed on the right radial and ulnar artery. 10:11:44 Patient has been NPO for More than 6Hrs. 10:11:44 Skin Breakdown-none per patient. 10:11:45 Patient Warmer Placed on the Table. 10:11:47 Lety Prominences Protected 10:11:47 A # 20 IV was noted in the Upper Arm (right). Grade = 0 10:11:49 Patient arrived on IV Solutions in Right Arm via Peripheral IV. Pump/Drip Flow = 20 ml/hr u sing NaCl .9. 10:11:50 History and physical on the chart or being dictated. Assessment: Initial Case, HR=90 BPM, Rhythm=Sinus, TAQA=384/104 mmhg, Chest Pain=2, Edema=None, Color=Normal, Skin = Warm, Dry Right Pulses: Jacek Ped=2, Femoral=2, Radial=2 10:11:51 Left Pulses: Jacek Ped=2, Femoral=2 Neurological: State=Alert, Ox3, PERES Respiration: Resp=11 B/min, SpO2=99 %, O2=0 lpm Vitals capture started with the following parameters, Patient=Adult, Interval=5 min, Initial Pr xnfumk=207 mmHg, 10:12:41 Deflation Rate=5 mmHg, Cuff placed on Right Arm 10:13:50 HR=52 bpm, TLHU=509/104 mmhg, SpO2=98.0 %, Resp=18 B/min, Pain=2, Claudio=10, Hernandez=2 10:19:18 HR=54 bpm, CQEN=333/96 mmhg, SpO2=97.0 %, Resp=19 B/min, Pain=2, Claudio=10, Hernandez=2 10:20:11 Right Radial and groin(s) prepped with 2% chlorhexidine, and draped after a 3 min. waiting time. 10:24:13 HR=52 bpm, RFRY=247/95 mmhg, SpO2=97.0 %, Resp=19 B/min, Pain=2, Claudio=10, Hernandez=2 10:24:33 Pressure channel 2 zeroed. 10:24:37 MD paged 10:25:45 MD responded 10:28:26 HR=52 bpm, VFXC=756/93 mmhg, SpO2=99.0 %, Resp=17 B/min, Pain=2, Claudio=10, Hernandez=2 10:32:09 2 mg VERSED given in lab by Myla Davenport, RN in Right Arm via Peripheral IV. 10:32:23 Reference ECG taken Time Out. Correct patient, correct procedure, correct physician, labs, allergies, and equipment verified with foundry laborer coreroom 10:32:47 team present. Fire risk assesment completed (see hard stop sheet for coding). Time Out Conc urred by and individual staff in procedure. 10:33:27 50 mcg FENTANYL given in lab by Myla Davenport, RN in Right Arm via Peripheral IV. 10:34:15 HR=51 bpm, TICA=773/103 mmhg, SpO2=98.0 %, Resp=21 B/min, Pain=2, Claudio=10, Hernandez=2 10:36:38 5 mL 1% XYLOCAINE given in lab by Landon Tsang in Right Radial via Subcutaneous. 10::39 Case Start 10:37:10 Access site was Right Radial Artery . A SHEATH, FR6 RADIAL PRELUDE EASE 11CM FR 6 was advanced into the Radial (right) using the Perc utaneous 10:37:17 technique. 10::39 200 mcg NTG (IC) given in lab by Landon Tsang in Right Radial via Intra-arterial. 10:38:05 5000 units HEPARIN given in lab by Myla Davenport, CJ in Right Arm via Peripheral IV. A JR 5.0 INFINITI CATHETER FR 5 was advanced over a wire. OMNIPAQUE, 350 MG, 150ML 150ML was us ed for 10:38:29 injections. 10:38:33 HR=54 bpm, CDAF=830/86 mmhg, SpO2=95.0 %, Resp=10 B/min, Pain=2, Claudio=10, Hernandez=2 10:39:26 The RCA was injected and visualized at various angles. contrast used. After removing the current catheter a JL 3.5 INFINITI CATHETER FR 5 was advanced over a WIRE, E XCHANGE 260CM 10:39:52 3MMJ 260CM. Recorded Pressure: Ao, HR=67, Condition=Condition 1 10:41:07 (Aorta) Ao 144/78/106 10:41:22 The LCA was injected and visualized at various angles. OMNIPAQUE, 350 MG, 150ML 150ML used . 10:43:17 HR=76 bpm, RXRV=366/90 mmhg, SpO2=93.0 %, Resp=5 B/min, Pain=2, Claudio=10, Hernandez=2 After removing the current catheter a JL 4.0 GUIDE CATHETER FR 6 was advanced over a WIRE, EXCH REX 260CM 10:44:31 3MMJ 260CM. 10:44:41 Wire removed 10:46:07 A WIRE, RUNTHROUGH NS FLOPPY .014 180CM 180CM was inserted via Radial (right). 10:46:30 Interventional wire has crossed the lesion 10:47:00 11 mL ANGIOMAX BOLUS given in lab by Myla Davenport, RN in Right Arm via Peripheral IV. 10:48:18 HR=74 bpm, IUBI=881/89 mmhg, SpO2=94.0 %, Resp=13 B/min, Pain=2, Claudio=10, Hernandez=2 10:48:46 A implantable was advanced through a catheter over a wire. A STENT, 2.5 15MM ANA 2.5 15MM was deployed using a 30 YOHANA INDEFLATOR at 14 atmospheres for 10 seconds in 10:48:48 the OM1 Mid. 10:49:23 Re-inflated the stent balloon in the OM1 Mid to 6 YOHANA for 8 seconds. 1.75 mg/kg/hr ANGIOMAX DRIP given in lab by Myla Davenport RN in Right Arm via Peripheral IV . Pump/Drip Flow = 10:50:07 26.67 ml/hr using NaCl .9 with a concentration of 250 mg in 50 ml. 10:50:23 The LCA was injected and visualized at various angles. OMNIPAQUE, 350 MG, 150ML 150ML use d. 10:50:34 Delivery device removed 10:50:48 Wire removed 10:50:51 A WIRE, EXCHANGE 260CM 3MMJ 260CM was inserted via Radial (right). 10:51:01 Catheter was removed 10:51:03 Wire removed 10:51:08 Case End (Physician broke scrub) Radial Compression Device Used. 12 mLs of air placed in BAND, RADIAL COMPRESSION TR SHORT 24 2 4CM. Affected 10:52:54 hand 97 % O2 saturation. 10:53:21 HR=76 bpm, JNZY=088/86 mmhg, SpO2=95.0 %, Resp=22 B/min, Pain=2, Claudio=10, Hernandez=2 10:56:23 No case complications noted. 10:56:38 Cine recording checked. 10:57:11 Bedside Report will be given. 10:57:46 A Left Heart Cath was performed. Assessment: Final Case, HR=67 BPM, Rhythm=Sinus, WIQW=350/91 mmhg, Chest Pain=0, Edema=None, Color=Normal, Skin = Warm, Dry Right Pulses: Jacek Ped=2, Femoral=2, Radial=2 10:57:55 Left Pulses: Jacek Ped=2, Femoral=2 Neurological: State=Alert, Ox3, PERES Respiration: Resp=11 B/min, SpO2=97 %, O2=0 lpm 10:58:21 HR=67 bpm, KUCW=452/91 mmhg, SpO2=97.0 %, Resp=12 B/min, Pain=0, Claudio=10, Hernandez=2 11:00:19 Vitals capture stopped. 11:01:09 Patient moved to stretcher End Study - Contrast Media Used In Study Contrast Total Opened (mL) Total Used (mL) Total Wasted (mL) Omnipaque 300 150 65 85 End Study - Maximum Contrast Load Max Contrast Load (mL) 317.4 End Study - Radiation Exposure Fluoro Time Fluoro Dose (mGy) Cine Dose (uGym2) (minutes) 3.3 623 3198 End Study - Patient Disposition Complications Transferred To Interventional Outcome No Telemetry Bed successful
--- NOTE | 2018-06-16 11:06 | P.PNIM ---
Subjective Interval history: Follow-up for chest pain, NSTEMI, uncontrolled hypertension. Patient seen initially around 8 AM. Patient reports his chest pain is improved overnight, however still has some discomfort at the left anterior chest, rated 2 /10. Reports a continued mild headache, however also improving. Denies any nausea/vomiting, diaphoresis, or shortness of breath. Going for heart catheterization this morning. Physical Exam Vital signs: Vital Signs 06/15/18 22:13 06/15/18 22:36 06/15/18 22:37 Temperature 97.9 F Pulse Rate 95 H 76 76 Respiratory Rate 22 18 Blood Pressure 258/125 H 243/115 H Pulse Oximetry 99 98 06/15/18 22:51 06/15/18 22:58 06/15/18 23:03 Temperature Pulse Rate 76 75 Respiratory Rate 18 17 18 Blood Pressure 181/84 H 158/73 H Pulse Oximetry 96 96 06/15/18 23:12 06/15/18 23:22 06/15/18 23:24 Temperature Pulse Rate 77 79 Respiratory Rate 16 17 Blood Pressure 160/76 H 151/72 H Pulse Oximetry 96 97 06/15/18 23:49 06/16/18 00:54 06/16/18 01:25 Temperature Pulse Rate 69 Respiratory Rate 18 18 Blood Pressure 162/84 H Pulse Oximetry 97 98 06/16/18 01:28 06/16/18 01:41 06/16/18 02:10 Temperature 97.5 F L Pulse Rate 60 60 Respiratory Rate 16 18 Blood Pressure 155/84 H Pulse Oximetry 98 06/16/18 04:00 06/16/18 08:00 Temperature 97.4 F L 97.5 F L Pulse Rate 63 56 L Respiratory Rate 16 18 Blood Pressure 170/89 H 176/85 H Pulse Oximetry 94 L 99 Intake & Output 06/15/18 06/16/18 06/16/18 18:59 06:59 18:59 Intake Total 500 / 500 300 / 300 Balance 500 / 500 300 / 300 Weight 76.204 kg Intake: IV 500 / 500 300 / 300 NS Inj 1,000 ML @ 125 mls/hr IV 300 / 300 .CONT .Q8H GAYE Rx#:[id number] NS Inj 500 ML @ 1000 mls/hr IV. 500 / 500 SIG BOLUS GAYE Rx#:[id number] Other: # Voids 1 Date of Last Bowel Movement 06/15/18 Weight On Admission 76.204 kg Narrative: GENERAL: Well-developed pleasant middle-aged male in no acute distress. SKIN: Warm and dry. No visible rashes CARDIOVASCULAR: Regular rate and rhythm. No obvious murmurs to auscultation. RESPIRATORY: No obvious rhonchi or wheezing. Clear to auscultation. Breath sounds equal bilaterally. GASTROINTESTINAL: Abdomen soft, non-tender, nondistended. Normoactive bowel sounds. MUSCULOSKELETAL: Extremities without clubbing, cyanosis, or edema. No obvious deformities. NEUROLOGICAL: Awake, alert and oriented x4. No focal neurologic deficits. PSYCHIATRIC: Appropriate mood and affect. Insight and judgment normal. Results Labs CBC & Chem 7: 06/16/18 05:18 06/16/18 05:18 Imaging Imaging: Impressions Chest X-Ray 06/15/18 22:26 CONCLUSION: Negative chest Assessment and Plan Plan 48-year-old male with history of hypertension, hyperlipidemia, and diabetes presents with acute onset of chest pain Acute NSTEMI: Patient presented with severe 10/10 chest pain shortness of breath , relieved by nitroglycerin. -Troponins trended, 0.10 to 0.31 -EKG reviewed, shows NSR, nonspecific T wave changes without acute ST elevation/depression -Give aspirin, statin, nitro, metoprolol, and morphine prn, O2 prn -Started on IV Heparin drip -Monitor on telemetry -Consult cardiology, planning for cardiac catheterization today Accelerated Hypertension with Hypertensive Urgency: BP 258/125 upon arrival, responded to nitroglycerin -Started on metoprolol 25 mg bid -Initially held lisinopril due to SERENITY, however will now restart 20mg bid -Monitor BP, add antihypertensives as needed SERENITY: Creatinine 1.47 on arrival, no baseline for comparison, presumably new -Give IVF for hydration -Avoid nephrotoxins -Creatinine trending down 1.47 --> 1.23 -Initially help lisinopril because of SERENITY, ok to restart for BP control -Encourage oral hydration after discharge Diabetes Mellitus: chronic -HgbA1c 8.9 -Monitor Accu-checks and cover with SSI Hyperlipidemia: chronic -continue patient's statin -LDL 66 DVT Prophylaxis: on IV Heparin drip Attending Attestation patient was seen and examined. has mild chest discomfort which is better now. otherwise looks comfortable with no distress. BP trend noted. cardiology consulted and plan for cardiac cath. Progress Note: Quality VTE Deep Vein Thrombosis/Pulmonary Embolism Present on Admission: No
--- NOTE | 2018-06-16 11:31 | ECG ---
Date Performed: 06/15/2018 Time Performed: 22:27:04 PTAGE: 48 years EKG: Sinus rhythm LEFT VENTRICULAR HYPERTROPHY AND ST-T CHANGE ABNORMAL ECG PREVIOUS TRACING : 04/11/2006 13.36 No significant change from previous tracing noted. DOCTOR: Pravin Reyes Interpretating Date/Time 06/16/2018 11:30:38
[2018-06-16] MEDS: Lisinopril 20 MG Tablet PO SCH ×2 (11:59→20:49)
[2018-06-16] MEDS ORDERED: Heparin 10,000 UNITS/10 ML Vial (for IV use) IV.PUSH PRN ×2 (12:21)
[2018-06-16] MEDS: hydrALAZINE 50 MG Tablet PO SCH ×2 (12:39→17:12)
[2018-06-16] MEDS ORDERED: Iohexol 350 MG/ML 100 ML Vial (for Cath Lab) IVCONTRAST ONE (13:53)
[2018-06-16] MEDS ORDERED: Dextrose 50% in Water 50 ML Vial IV.PUSH PRN (14:29)
[2018-06-16] MEDS: Insulin NovoLOG Aspart Correctional Sugar Inj SQ SCH ×2 (17:12→21:26)
[2018-06-17 06:33] LABS: Baso # (Auto) 0.1 th/mm3 (0.0-0.2); Baso % (Auto) 0.8 % (0.0-2.0); Eos # (Auto) 0.4 th/mm3 (0.0-0.4); Eos % (Auto) 5.5 % (0.0-4.0); Hematocrit 45.6 % (39.0-51.0); Hemoglobin 15.3 gm/dL (13.0-17.0); Lymph # (Auto) 1.9 th/mm3 (1.0-4.8); Lymph % (Auto) 22.9 % (9.0-44.0); Mean Corpuscular HGB Conc 33.6 % (32.0-36.0); Mean Corpuscular Hemoglobin 30.7 pg (27.0-34.0); Mean Corpuscular Volume 91.5 fL (80.0-100.0); Mean Platelet Volume 8.5 fL (7.0-11.0); Mono # (Auto) 0.4 th/mm3 (0.0-0.9); Mono % (Auto) 5.4 % (0.0-8.0); Neut # (Auto) 5.3 th/mm3 (1.8-7.7); Neut % (Auto) 65.4 % (16.0-70.0); Platelet Count 284 th/mm3 (150-450); Red Blood Count 4.98 mil/mm3 (4.50-5.90); Red Cell Distribution Width 14.2 % (11.6-17.2); White Blood Count 8.1 th/mm3 (4.0-11.0)
[2018-06-17 07:12] LABS: Calcium 8.4 mg/dL (8.5-10.1); Chol/HDL Ratio 2.72 Ratio; HDL Cholesterol 51.3 mg/dL (40.0-60.0); Potassium 4.2 meq/L (3.5-5.1)
[2018-06-17 07:49] VITALS: RESP 16
[2018-06-17] MEDS: Acetaminophen 325 MG Tablet PO PRN (07:54)
[2018-06-17] MEDS: Insulin NovoLOG Aspart Correctional Sugar Inj SQ SCH ×2 (09:00→12:40)
[2018-06-17] MEDS: hydrALAZINE 50 MG Tablet PO SCH ×2 (09:00→12:41)
[2018-06-17] MEDS ORDERED: INSULIN DEGLUDEC 15 UNIT SQ SCH (09:00)
[2018-06-17] MEDS: Metoprolol Tartrate 25 MG Tablet PO SCH (09:00)
[2018-06-17] MEDS: Lisinopril 20 MG Tablet PO SCH (09:01)
[2018-06-17] MEDS: Escitalopram 10 MG Tablet PO SCH (09:01)
[2018-06-17] MEDS: Senna/Docusate Sodium 8.6/50 MG Tablet PO SCH (09:02)
[2018-06-17] MEDS: Sod Chloride 0.9% Inj 1,000 ML IV.CONT SCH ×2 (09:35→09:36)
[2018-06-17 11:41] VITALS: BP 123/76; TEMP 97.7
--- NOTE | 2018-06-17 15:00 | P.DS ---
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 States he had sudden onset substernal chest pain at work this afternoon, pain resolved spontaneously after few minutes. Later this evening had recurrent episode of chest pain, this time severe, 10/10, substernal , non-radiating, associated w/ SOB and severe headache. On arrival, BP 258/125 , HR 95, O2 sat 99% on RA, Afebrile. S/p NTG w/ improvement in BP to 150-160' s. Currently chest pain free. CBC unremarkable. Creatinine 1.47, no previous labs for comparison. BS 301. CXR negative. Troponin 0.10. DS: Summary 48-year-old male with history of hypertension, hyperlipidemia, and diabetes presents with acute onset of chest pain. The patient found with acute non-ST elevation MO, cardiology was consulted. S/P Procedure: 06/16/[address] Tsang: Percutaneous core intervention with drug-eluting stent to the first obtuse marginal. Patient was placed on aspirin, Plavix, statin, metoprolol to continue discharge also continue home medications. Patient is discharged in stable condition home to follow-up with PCP and consultants as outpatient. Acute NSTEMI: Patient presented with severe 10/10 chest pain shortness of breath , relieved by nitroglycerin. -Troponins trended, 0.10 to 0.31 -EKG reviewed, shows NSR, nonspecific T wave changes without acute ST elevation/depression -Give aspirin, statin, nitro, metoprolol, and morphine prn, O2 prn -Started on IV Heparin drip. DC heparin drip. Start on Plavix and aspirin to have a discharge -Monitor on telemetry -Consult cardiology, status post cardiac catheterization by Dr. Tsang on 06/16. Procedure: 06/16/[address] Tsang: Percutaneous core intervention with drug- eluting stent to the first obtuse marginal Accelerated Hypertension with Hypertensive Urgency: BP 258/125 upon arrival, responded to nitroglycerin -Started on metoprolol 25 mg bid -Initially held lisinopril due to SERENITY, however will now restart 20mg bid -Monitor BP, add antihypertensives as needed SERENITY: Creatinine 1.47 on arrival, no baseline for comparison, presumably new. Kidney function improved and creatinine back at baseline -Give IVF for hydration -Avoid nephrotoxins -Creatinine trending down 1.47 --> 1.23 -Initially help lisinopril because of SERENITY, ok to restart for BP control -Encourage oral hydration after discharge Diabetes Mellitus: chronic -HgbA1c 8.9 -Monitor Accu-checks and cover with SSI Hyperlipidemia: chronic -continue patient's statin -LDL 66 DVT Prophylaxis: on IV Heparin drip Time Spent with Patient Total time spent providing and/or coordinating discharge services: > 30 min Quality: VTE Deep Vein Thrombosis/Pulmonary Embolism Present on Admission: No Exam Narrative Exam Narrative: GENERAL: Pleasant 48-year-old male, well-nourished well- developed appears in not acute distress. CARDIOVASCULAR: Regular rate and rhythm. RESPIRATORY: No accessory muscle use. Clear to auscultation. Breath sounds equal bilaterally. GASTROINTESTINAL: Abdomen soft, non-tender, nondistended. Hepatic and splenic margins not palpable. MUSCULOSKELETAL: Right wrist without erythema, dressing applied CDI. Extremities without clubbing, cyanosis, or edema. No obvious deformities. NEUROLOGICAL: Awake and alert. No obvious cranial nerve deficits. Motor grossly within normal limits. Five out of 5 muscle strength in the arms and legs. Normal speech. PSYCHIATRIC: Appropriate mood and affect; insight and judgment normal. Results Labs on day of discharge: Labs from last 24 hours 06/17/18 06/17/18 06/17/18 11:49 07:46 04:43 WBC RBC Hgb Hct MCV MCH MCHC RDW Plt Count MPV Neut % (Auto) Lymph % (Auto) [place] % (Auto) Eos % (Auto) Baso % (Auto) Neut # (Auto) Lymph # (Auto) [place] # (Auto) Eos # (Auto) Baso # (Auto) WBC Differential Differential Comment APTT Sodium 139 Potassium 4.2 Chloride 105 Carbon Dioxide 25.0 Anion Gap 9 BUN 20 H Creatinine 1.22 Estimated GFR 64 L POC Glucose 272 H 227 H Random Glucose 186 H Calcium 8.4 L D Total Creatine Kinase 94 Triglycerides 114 Cholesterol 140 LDL Cholesterol, Calc 66 HDL Cholesterol 51.3 Cholesterol/HDL Ratio 2.72 06/17/18 06/16/18 06/16/18 04:43 21:14 19:03 WBC 8.1 RBC 4.98 Hgb 15.3 Hct 45.6 MCV 91.5 MCH 30.7 MCHC 33.6 RDW 14.2 Plt Count 284 MPV 8.5 Neut % (Auto) 65.4 Lymph % (Auto) 22.9 Independence % (Auto) 5.4 Eos % (Auto) 5.5 H Baso % (Auto) 0.8 Neut # (Auto) 5.3 Lymph # (Auto) 1.9 Independence # (Auto) 0.4 Eos # (Auto) 0.4 Baso # (Auto) 0.1 WBC Differential . Differential Comment Auto diff final APTT 28.2 Sodium Potassium Chloride Carbon Dioxide Anion Gap BUN Creatinine Estimated GFR POC Glucose 303 H Random Glucose Calcium Total Creatine Kinase Triglycerides Cholesterol LDL Cholesterol, Calc HDL Cholesterol Cholesterol/HDL Ratio 06/16/18 16:53 WBC RBC Hgb Hct MCV MCH MCHC RDW Plt Count MPV Neut % (Auto) Lymph % (Auto) Independence % (Auto) Eos % (Auto) Baso % (Auto) Neut # (Auto) Lymph # (Auto) Independence # (Auto) Eos # (Auto) Baso # (Auto) WBC Differential Differential Comment APTT Sodium Potassium Chloride Carbon Dioxide Anion Gap BUN Creatinine Estimated GFR POC Glucose 319 H Random Glucose Calcium Total Creatine Kinase Triglycerides Cholesterol LDL Cholesterol, Calc HDL Cholesterol Cholesterol/HDL Ratio Impressions ITS Impressions Chest X-Ray 06/15/18 22:26 CONCLUSION: Negative chest Discharge Plan Discharge Disposition Patient Disposition: 01 Discharge Home Discharge Condition Condition: Stable Discharge Order Discharge Orders: Discharge Order (Routine); Ordered 06/17/18 Ordered By: Nan Pate Cardiology Clear for Discharge (Routine); Ordered 06/16/18 Ordered By: Landon Tsang Discharge Details Anticipated Discharge Date: 06/17/18 Physicians Team Primary Care Provider: UNKNOWN, Attending Provider: Nan Pate Other Providers: Landon Tsang ; [facility],Insurance Rxs /Orders / Referrals /Forms Prescriptions: New atorvastatin 80 mg Tablet 80 mg PO DAILY Qty: 30 RF: 0 hydralazine 50 mg Tablet 50 mg PO TID Qty: 90 RF: 0 metoprolol tartrate 25 mg Tablet 25 mg PO BID Qty: 60 RF: 0 clopidogrel [Plavix] 75 mg Tablet 75 mg PO DAILY Qty: 30 RF: 5 aspirin 81 mg Tablet,Chewable 81 mg PO DAILY Qty: 30 RF: 5 Continue lisinopril 20 mg Tablet 20 mg PO BID RF: 0 escitalopram oxalate [Lexapro] 5 mg Tablet 5 mg PO DAILY RF: 0 insulin regular human 100 unit/mL Solution 10 unit SUBCUT TID RF: 0 insulin degludec [Tresiba FlexTouch U-100] 100 unit/mL (3 mL) Insulin Pen 15 unit SUBCUT DAILY RF: 0 Discontinued atorvastatin 10 mg Tablet 10 mg PO DAILY RF: 0 Referrals: UNKNOWN, [Primary Care Provider] - See Instructions Stand Alone Forms: Work Release/Restrictions Discharge Instructions Patient Printed Instructions: Metoprolol (By mouth), Aspirin (By mouth), Hydralazine (By mouth), Atorvastatin (By mouth), Clopidogrel (By mouth), Chest Pain (ED), Heart Healthy Diet (DC), Acute Wound Care (DC), Hypertensive Crisis ( DC), Coronary Intravascular Stent Placement (DC), After Radial Heart Catheterization (GEN) Status ED Status: Left Department
[2018-06-17 15:32] VITALS: O2SAT 95
[2018-06-17 15:35] VITALS: PULSE 68
== END 2018-06-17 16:12 | disposition home or self-care (01) | DRG 247 ==
LOC: NEPD 22:11 → NEDA 22:11 → NEPFCDU 06-16 01:20 → HCIS 06-16 10:03
PROVIDERS: ADMIT Hospitalist; ATTEND Hospitalist
DX: R51 Headache; E11.65 Type 2 diabetes mellitus with hyperglycemia; I16.1 Hypertensive emergency; Z79.899 Other long term (current) drug therapy; Z87.891 Personal history of nicotine dependence; I21.4 Non-ST elevation (NSTEMI) myocardial infarction; E78.5 Hyperlipidemia, unspecified; I10 Essential (primary) hypertension; N17.9 Acute kidney failure, unspecified; Z79.4 Long term (current) use of insulin; H53.8 Other visual disturbances
CPT/HCPCS: 71010; 71045; 80048; 80053; 80061; 80307; 81001; 82550; 82552; 82948; 82962; 83036; 83520; 83735; 83880; 84484; 85025; 85610; 85730; 92928; 93005; 93454; 99152; 99153; 99291; C1769; C1874; C1887; C1893; C9111; J0583; J1644; J1815; J2250; J3010; J7030; J7040; Q9967